=== PATIENT | female | born 1955 | race Caucasian/White ===

== ENCOUNTER → 2018-04-18 08:12 | Outpatient (CLI) | payer OTHER, SELFPAY ==
[2018-04-18 10:27] LABS: Cholesterol 220 mg/dL (200); Glucose 92 mg/dL (74-106); High Density Lipoprotein 62 mg/dL; Triglycerides 86 mg/dL; Very Low Density Lipoprotein 17 mg/dL (5-40)
== END ==
PROVIDERS: Family Provider Family Medicine; PCP Family Medicine; Visit Provider Psychiatry & Neurology Psychiatry
DX: E88.81 Metabolic syndrome and other insulin resistance (principal); Z79.899 Other long term (current) drug therapy
CPT/HCPCS: 36415; 80061; 82947

== ENCOUNTER → 2020-04-10 | Outpatient (CLI) | payer MEDICARE, OTHER, SELFPAY ==
[2015-08-22 14:21] VITALS: BMI 37.0
[2020-04-10 10:47] LABS: Cholesterol 207 mg/dL (200); Glucose 94 mg/dL (74-106); High Density Lipoprotein 65 mg/dL; Triglycerides 91 mg/dL; Very Low Density Lipoprotein 18 mg/dL (5-40)
== END | disposition home or self-care (01) ==
LOC: MTLAB 09:13
PROVIDERS: PCP Family Medicine; Referring Provider Psychiatry & Neurology Psychiatry; Visit Provider Psychiatry & Neurology Psychiatry
DX: E88.81 Metabolic syndrome and other insulin resistance (principal)
CPT/HCPCS: 36415; 80061; 82947

== ENCOUNTER → 2022-03-09 | Outpatient (CLI) | payer MEDICARE, OTHER, SELFPAY ==
[2022-03-09 10:38] LABS: Hemoglobin A1c 5.4 % (3.8-5.6)
[2022-03-09 10:59] LABS: Cholesterol 199 mg/dL (200); Glucose 105 mg/dL (74-106); High Density Lipoprotein 67 mg/dL; Triglycerides 86 mg/dL; Very Low Density Lipoprotein 17 mg/dL (5-40)
== END | disposition home or self-care (01) ==
LOC: MTLAB 08:58
PROVIDERS: PCP Family Medicine; Referring Provider Psychiatry & Neurology Psychiatry; Visit Provider Psychiatry & Neurology Psychiatry
DX: E78.00 Pure hypercholesterolemia, unspecified (principal); R73.9 Hyperglycemia, unspecified
CPT/HCPCS: 36415; 80061; 82947; 83036

== ENCOUNTER 2024-11-18 09:39 | Emergency (ER) | payer MEDICARE, OTHER, SELFPAY ==
[2024-11-18 09:40] VITALS: BP 166/91; PULSE 100; RESP 14; TEMP 36.6; O2SAT 98; BMI 36.0
--- NOTE | 2024-11-18 10:23 | CT_ITS ---
EXAM: BRAIN/HEAD WITHOUT CONTRAST CLINICAL HISTORY: 69-year-old female, confusion, history of schizophrenia. COMPARISON: None. TECHNIQUE: Routine CT imaging of the head without IV contrast. Additional multiplanar reformats were obtained. Dose reduction techniques were used including intermediate exposure control (AEC),iterative reconstruction technique, and/or mA and/or KV dose adjustments based on patient's size. FINDINGS: Mild generalized cerebral and cerebellar volume loss with concordant prominence of the ventricles and subarachnoid spaces. Moderate patchy supratentorial white matter hypodensities. Small lacunar type infarct within the anterior limb of the left internal capsule. No acute intracranial hemorrhage or herniation. No hydrocephalus. The basal cisterns are patent. The mastoid air cells and visualized paranasal sinuses are well-aerated. Unremarkable orbits. No calvarial fracture. Bilateral TMJ arthrosis. CT/Brain/Head without Contrast IMPRESSION: 1. No acute intracranial abnormality. 2. Mild cerebral and cerebellar volume loss, moderate white matter disease and small left lacunar infarct, compatible with age-related changes and chronic microvascular ischemic changes. Reading Location: [id number]
--- NOTE | 2024-11-18 10:23 | EKG12_ITS ---
Test Reason : CONFUSED Blood Pressure : */* mmHG Vent. Rate : 80 BPM Atrial Rate : 80 BPM P-R Int : 174 ms QRS Dur : 80 ms QT Int : 390 ms P-R-T Axes : 24 -18 10 degrees QTcB Int : 449 ms Normal sinus rhythm Normal ECG Confirmed by LILY MORTON, KAMALJIT ([id number]), editorial assistant GABINO JACINTO ([id number]) on 11/20/2024 8:19:44 AM Referred By: Confirmed By: KAMALJIT BAUTISTA MD
--- NOTE | 2024-11-18 10:23 | EX.ED.DYSGE1 ---
HPI History of Present Illness Chief Complaint: Confusion Detail of Chief Complaint: Confusion and odd behavior Informant: patient and spouse/S.O. Narrative Narrative: Patient presents to the emergency department with her for increased confusion and increasingly odd behavior. Patient has history of schizophrenia. states that he has been dealing with issues with her for over 40 years. She had an admission to a psychiatric facility in August and at that time she was started on Abilify and taken off Zyprexa. She did well with that and has had injections every 8 weeks. Last injection was about 4 weeks ago. Over the last 4 days she has had decompensation and odd behavior such as removing all the glass were out of cabinets and putting it downstairs. She is taking pictures off the stovall. She goes for days without talking to him and will saying songs like Meño loves me for up to half an hour at a time. No significant recent illness. Patient does describe a headache but it is not unusual for her to have headaches. No recent falls or injuries. [facility] Medical History Disorganized schizophrenia, chronic condition Home Medications ?Medication ?Instructions ?Recorded ?Last Taken ?Type calcium carbonate 600 mg PO DAILY 08/19/15 Unknown History multivitamin with folic acid 400 1 tab PO DAILY 08/19/15 Unknown History mcg tablet (Thera) ascorbic acid 125 mg-collagen, cap PO 08/21/24 Unknown History hydrolyzed 740 mg capsule aripiprazole (2 month) 720 mg/2.4 720 mg (2.4 mL) IM [id number] #2.4 mL 10/23/24 Unknown Rx mL susp, extended rel IM syringe (Abilify Asimtufii) albuterol sulfate 90 mcg/actuation 2 puff inhalation PRN wheezing 11/18/24 Unknown History aerosol inhaler omeprazole 20 mg capsule,delayed 20 mg PO 11/18/24 Unknown History release Allergy/AdvReac Type Severity Reaction Status Date / Time No Known Allergies Allergy Verified 11/18/24 09:41 Family History Other Asthma Breast cancer CVA (cerebral vascular accident) Hypertension Myocardial infarction Ovarian cancer Surgical History History of hysterectomy Social History Smoking Status: Never smoker alcohol intake: never substance use type: does not use what type of physical activity do you participate in: none ROS ROS ED Review of Systems ROS Unobtainable: other Constitutional Constitutional ED: Reports lethargy; Denies chills, fever(s), sweats or weight loss Eyes Eyes: Denies blurry vision, change in vision or diplopia ENT ENT ED: Denies rhinorrhea or sore throat Cardiovascular Cardiovascular: Reports chest pain; Denies orthopnea or racing heartbeat Respiratory/Chest Respiratory/Chest: Denies cough, dyspnea, dyspnea on exertion, orthopnea or sputum Gastrointestinal Gastrointestinal: Denies abdominal pain, diarrhea, nausea or vomiting Genitourinary Genitourinary ED: Denies dysuria, hematuria or urinary frequency Musculoskeletal Musculoskeletal: Denies arthralgias, back pain, myalgias or neck pain Integumentary Denies abscess, Abrasions or rash Neurologic Neurologic: Reports headache(s) and other Details: Abnormal behavior ; Denies weakness Psychiatric Psychiatric: Denies anxiety, depression or suicidal thoughts Endocrine Endocrinology: Denies polydipsia, polyphagia or polyuria Hematologic/Lymphatic Hematologic/Lymphatic: Denies easy bleeding, easy bruising or lymphadenopathy Allergic/Immunologic Allergic/Immunologic ED: Denies mouth swelling, tongue swelling or urticaria EXAM Physical Exam Const Vital Signs: 11/18/24 09:40 11/18/24 11:40 11/18/24 13:00 Temperature 97.9 F Temperature Source Temporal Pulse Rate 100 82 89 Respiratory Rate 14 17 Blood Pressure 166/91 H 156/81 H 161/89 H Blood Pressure Mean 116 106 113 Pulse Ox 98 97 96 Oxygen Delivery Method Room Air Room Air Room Air 11/18/24 15:00 11/18/24 17:00 Temperature Temperature Source Pulse Rate 76 82 Respiratory Rate 19 H 17 Blood Pressure 143/83 H Blood Pressure Mean 103 Pulse Ox 97 96 Oxygen Delivery Method Room Air Room Air Positive well nourished and well developed General Appearance ED: well developed and NAD HEENT Reports TM's clear and moist mucous membranes normocephalic and atraumatic; Negative for trauma or tenderness Tympanic Membrane ED: Yes TM's clear Eyes PERRL and EOMs intact bilaterally General Eye ED: Negative for pale conjunctiva or scleral icterus Neck no lymphadenopathy, supple and no JVD General: Negative for tenderness Chest Wall inspection of chest normal and palpation of chest normal Chest: Negative for tenderness Resp normal respiratory effort and clear to auscultation bilaterally Effort and Inspection: Negative for respiratory distress or pain with movement Auscultation: Negative for rhonchi, wheezes or diminished lung sounds Cardio regular rate, regular rhythm, S1 normal heart sound, S2 normal heart sound and no murmurs Peripheral Pulses: pulses 2+ throughout GI normal to inspection, nondistended, normoactive bowel sounds, soft to palpation, non-tender, non-distended and no masses Back/Spine no CVA tenderness and no thoracic nor lumbar tenderness Extremity normal to inspection General Extremety ED: Negative for edema General Extremity: Negative for edema Neuro oriented x3, CN's II-XII intact bilaterally, no sensory deficits noted and gait normal Sensorium / Orientation: awake, alert, oriented to person, oriented to place and oriented to time Motor Exam: strength 5/5 throughout and strength abnormal Psych mental status grossly normal Skin no rashes or lesions noted and no wounds MDM MDM MDM Narrative Medical decision making narrative: Patient presents to the emergency department with increased confusion and abnormal behavior. She has longstanding history of schizophrenia. Currently on Abilify. Clinically she looks well and is nontoxic-appearing and following commands. At times she is slow to answer questions. Most of the history comes from the patient's . CBC with differential obtained was normal. Chemistries unremarkable. LFTs were normal. Urinalysis was normal without signs of infection. Alcohol was negative and toxicology screen was negative. CT scan of the brain without contrast will be obtained. Patient was seen by addiction social worker and plan will be to transfer patient to the psychiatric facility for definitive care for decompensated schizophrenia. Patient medically cleared for psychiatric facility. Patient accepted to psych at facility. They recommended we order COVID flu and RSV testing as well as a chest x-ray which will be performed and patient will be transferred to psychiatric facility for definitive care. Lab Data Attestation: I reviewed the patient's lab results. Labs: Laboratory Results - last 24 hr 11/18/24 11/18/24 10:00 10:32 WBC 7.1 RBC 4.12 L Hgb 13.1 Hct 39.6 MCV 96.1 MCH 31.8 MCHC 33.1 RDW Std Deviation 51.1 H RDW Coeff of Tyrel 14.4 Plt Count 259 MPV 10.8 Immature Gran % (Auto) 0.400 Neut % (Auto) 74.8 H Lymph % (Auto) 16.7 L [place] % (Auto) 6.0 Eos % (Auto) 1.1 Baso % (Auto) 1.0 Absolute Neuts (auto) 5.3 Absolute Lymphs (auto) 1.18 Nucleated RBC % 0 Sodium 140 Potassium 4.1 Chloride 104 Carbon Dioxide 29.0 Anion Gap 6 BUN 19 H Creatinine 0.98 Estim Creat Clear Calc 61.96 Est GFR (MDRD) Af Amer 72 Est GFR (MDRD) Non-Af 60 BUN/Creatinine Ratio 19.4 Glucose 99 Calcium 9.2 Total Bilirubin 0.70 AST 27 ALT 29 Alkaline Phosphatase 77 Troponin I High Sens 8 Total Protein 8.0 Albumin 3.8 Globulin 4.2 Albumin/Globulin Ratio 0.9 Urine Color Yellow Urine Clarity Sl. Cloudy Urine pH 6.0 Ur Specific [place] 1.020 Urine Protein 30 H Urine Glucose (UA) Normal Urine Ketones 5 H Urine Occult Blood 10 H Urine Nitrite Negative Urine Bilirubin Negative Urine Urobilinogen Normal Ur Leukocyte Esterase 100 H Urine RBC 0 SEEN Urine WBC 5-10 SEEN Ur Squamous Epith Cells 10-25 SEEN Urine Bacteria 0 SEEN Urine Mucus 0 SEEN Urine Opiates Screen NEGATIVE Urine Methadone Screen NEGATIVE Ur Barbiturates Screen NEGATIVE Ur Phencyclidine Scrn NEGATIVE Ur Amphetamines Screen NEGATIVE MDMA (Ecstasy) Screen NEGATIVE U Benzodiazepines Scrn NEGATIVE Urine Cocaine Screen NEGATIVE U Cannabinoids Screen NEGATIVE Ur Drug Screen Comment Ethyl Alcohol < 3.0 Radiography Diagnostic Testing: Clinical Impression(s) from Imaging Studies Brain CT 11/18/24 10:23 IMPRESSION: 1. No acute intracranial abnormality. 2. Mild cerebral and cerebellar volume loss, moderate white matter disease and small left lacunar infarct, compatible with age-related changes and chronic microvascular ischemic changes. Reading Location: [facility] Chest X-Ray 11/18/24 14:32 IMPRESSION: NEGATIVE CHEST. Reading Location: [facility] 1 view chest x-ray obtained interpreted by myself as no evidence of infiltrate or pneumothorax or acute disease process. Radiology in agreement EKG Initial EKG: Attestation: I personally reviewed and interpreted this EKG as follows: Comments: Sinus rhythm with rate of 80 bpm with no acute ST segment change Discharge Plan Triage Chief Complaint: Confusion ED Provider: Dianne Lloyd Dx/Rx/DC Orders Clinical Impression: Schizophrenia, Abnormal behavior, Disorganized schizophrenia, chronic condition Prescriptions: No Action ascorbic acid-collagen 125-740 mg capsule PO Abilify Asimtufii 720 mg/2.4 mL suspension,extended rel syring 720 mg IM [id number] Qty: 2.4 3RF Rx Instructions: Last shot given 10/05/2024; next shot due 11/30/2024 calcium carbonate 600 MG tablet 600 mg PO DAILY Patient Comments: SUPPLEMENT multivitamin with folic acid [Thera] 1 TABLET tablet 1 tab PO DAILY Patient Comments: SUPPLEMENT omeprazole 20 mg capsule,delayed release(DR/EC) 20 mg PO albuterol sulfate 90 mcg/actuation HFA aerosol inhaler 2 puff INHALATION PRN (Reason: wheezing) Primary Care Provider: Neo Garsia Referrals: Neo Garsia MD [Primary Care Provider] - Print Language: Macedonian Disposition Disposition: Psychiatric Hospital or Unit
[2024-11-18 10:28] LABS: Bacteria 0 SEEN /hpf (None Seen); Mucous, Urine 0 SEEN /hpf (<or=2+)
[2024-11-18 10:31] LABS: Color, Urine Yellow (Yellow); Glucose, Dipstick Normal (Normal); Ketone-Dipstick 5 mg/dl (Negative); Leukocyte Esterase-Dipstick 100 /ul (Negative); Nitrite-Dipstick Negative (Negative); Occult Blood-Urine 10 /ul (Negative); Protein-Dipstick 30 mg/dl (Negative); Urine Bilirubin Dipstick Negative (Negative); Urine Clarity Sl. Cloudy (Clear); Urine Urobilinogen Normal (Normal)
[2024-11-18 10:37] LABS: Squamous Epithelial Cells - UA 10-25 SEEN /hpf (5-10)
[2024-11-18 10:38] LABS: Absolute Lymphocyte Count 1.18 X10^3/uL (0.83-4.51); Absolute Neutrophil Count 5.3 X10^3/uL (2.0-7.7); Basophil# 0.07 X10^3/uL; Eosinophil# 0.08 X10^3/uL; Eosinophils% 1.1 % (0-5); Hematocrit 39.6 % (37-47); Hemoglobin 13.1 g/dL (12.0-15.0); Lymphocyte # 1.18 X10^3/ul (0.83-4.51); Lymphocyte % 16.7 % (19-41); Mean Corp Hgb Conc 33.1 g/dL (32-36); Mean Corpuscular Hgb 31.8 pg (27.0-32.0); Mean Corpuscular Volume 96.1 fL (81-99); Mean Platelet Vol. 10.8 fl (6.2-12.0); Monocyte# 0.42 X10^3/uL; NRBC Flagged by Analyzer 0 % (0-5); Neutrophil # 5.27 X10^3/uL (2.7-7.7); Neutrophil % 74.8 % (47-70); Platelet Count 259 K/mm3 (150-450); RBC Distribution Width CV 14.4 % (11.6-14.6); RBC Distribution Width SD 51.1 fl (35.1-43.9); Red Blood Count 4.12 M/mm3 (4.2-5.4); White Blood Count 7.1 K/mm3 (4.4-11.0)
[2024-11-18 10:38] LABS: Red Blood Cells-Urine 0 SEEN /hpf (0-5); White Blood Cells 5-10 SEEN /hpf (0-5)
[2024-11-18 10:56] LABS: Alcohol, Blood (Medical)-Serum < 3.0 mg/dL
[2024-11-18 11:03] LABS: ALB/GLOB Ratio 0.9 RATIO (0.9-2.4); AST(SGOT) 27 U/L (15-37); Alanine Aminotransfer ALT/SGPT 29 U/L (13-56); Albumin, Serum 3.8 g/dL (3.2-5.0); Alkaline Phosphatase 77 U/L (45-117); Anion Gap 6 (5-15); BUN 19 mg/dL (7-18); BUN/Creat Ratio 19.4 RATIO (10-20); Calcium,Total 9.2 mg/dL (8.5-10.1); Chloride 104 mmol/L (98-107); Creatinine, Serum 0.98 mg/dL (0.55-1.02); EST Glomerular Filtration Rate 60 mL/min (>60); Est Glom Filt Rate - Afr Amer 72 mL/min (>60); Estimated Creatinine Clearance 61.96 ml/min; Globulin 4.2 g/dL (2.2-4.2); Glucose 99 mg/dL (74-106); Potassium 4.1 mmol/L (3.5-5.1); Sodium Level 140 mmol/L (136-145); Troponin-I HS 8 pg/mL (3.0-54.0)
[2024-11-18 11:03] LABS: Amphetamine Urine NEGATIVE (<1000 ng/mL); Barbiturate Urine VISTA NEGATIVE (< 200 ng/mL); Benzodiazepine Urine VISTA NEGATIVE (< 200 ng/mL); Cocaine Urine VISTA NEGATIVE (< 300 ng/mL); Ecstacy Urine VISTA NEGATIVE (< 500 ng/mL); Methadone Urine VISTA NEGATIVE (< 300 ng/mL); Opiates Urine NEGATIVE (< 300 ng/mL); PCP Urine NEGATIVE (< 25 ng/mL); THC Urine VISTA NEGATIVE (< 50 ng/mL); Vista UDS pH Range 5
[2024-11-18 11:40] VITALS: BP 156/81; PULSE 82; O2SAT 97
--- NOTE | 2024-11-18 11:40 | CM.ED ---
Social Work Psychiatric Assessment Reason for consult: Confusion.? Informant(s): ?Patient, patient?s and review of medical records. Patient provided consent for visit and at first requested to be interviewed alone however once patient?s left the room, patient stopped talking altogether after answering her first name and completely shut down. healthcare social worker brought patient?s back into the room in an attempt to gather as much information as possible and there were intermittent times where patient would open her eyes and respond to questions.? Other times, patient would fall silent again. Chief Complaint:? Patient agreeable to come to the ED with to be evaluated following confusion and odd behavior since this past Wednesday when patient began to mentally decompensate. Patient has gone for up to 4 days without speaking to her , recently removed all of the glassware out of the kitchen and taken it downstairs and left the house this morning and started walking down the road in the cold and snowing conditions. Patient?s had to retrieve patient. Patient has been taking pictures off of the stovall and has been singing catholic songs for up to half hour at a time. Marital/Social History/Sexual Orientation/Gender Identity: Single/heterosexual/Cis-gender. Living Situation: Patient lives at home with her in [place]. Support/Resources: Patient?s , patient?s brothers and sisters in [place], Patient?s sons Tyler (lives local and helps out frequently), [place] and patient?s daughter Cassie of [place]. Patient?s muslim is also a support, the [employer] of [place] in [place]. History: None Education and Employment History: Patient has a 4 year college degree in Elementary Education. 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 Mental Health Treatment/History: Known history of schizophrenia. Patient?s reported he?s been ?dealing with this? for 40 years. Patient had an inpatient psychiatric hospitalization in August of 2024 due to similar reasons as today and was placed at [facility]. 40 years ago, patient has her first inpatient hospitalization at [facility]. No other psychiatric hospitalizations were reported. Triggers/Stressors to mental health: Medication non-compliance and uatsdin. Coping Skills: None that have been effective once patient begins to decompensate other than medication changes. History of Abuse (physical/sexual/verbal/emotional): Patient would not answer however patient?s denied any knowledge of any history or current emotional abuse, physical abuse, sexual abuse or IPV. Substance Abuse Current/Historical: Patient?s denied? any history or current substance abuse issues involving alcohol or drugs. Risk to Self/Others: ? Suicidal (thought/plan/intent/attempt): Patient spoke up and denied any previous or current thoughts of suicide and denied any previous attempts. ? Access to Lethal Means: There are 2 guns in the home.? Guns are not locked up, however the guns do not have ammunition in them and the ammunition is stored away from the guns. healthcare social worker provided verbal education and offered gun locks which were declined. ? Homicidal (thought/plan/intent/attempt): Patient spoke up and denied any previous or current homicidal ideation. ? History of Violence (self/others/objects): Denied Mental Status Exam: ??? Orientation: Patient oriented to first name but not last but was oriented to month, year and place. ??? Memory: Fair Appearance/General Behavior: Patient was observed to be clean and well groomed.? Patient kept her eyes either half shut or completely shut throughout the assessment, and vacillated between verbally ?participating in the assessment and not participating in the assessment. Otherwise, patient completely laid flat in the hospital bed the entire time without moving. Mood/Affect: Flat/blunted. Communication Pattern:? Communication was clear and easy to understand most of the time when patient would talk however at other times, patient would speak so soft it was hard to hear. Thought Process:? Patient denied any auditory or visual hallucinations, paranoia, delusions or preoccupations however patient?s spoke up and stated the other day when patient?s son Tyler asked patient why she was taking all of the glassware out of the cabinets, patient responded by saying that the President told her to. General Intellectual Functioning: ??Unable to fully assess. Likely close to or within the average range. Judgment: Poor Insight: Poor [place] SSRS SUICIDAL IDEATION Ask questions 1 and 2.? If both are negative, proceed to ?Suicidal Behavior? section. If the answer question 2 is yes, ask questions 3, 4, 5.? If the answer to question 1 and/or 2 is ?yes?, complete ?Intensity of Ideation? section below. 1. Wish to be ? Subject endorses thoughts about a wish to be or not alive anymore, or wish to fall asleep and not wake up. Have you wished you were or wished you could go to sleep and not wake up? No Lifetime: Time He/She [place] Most Suicidal: ? Past 1 month: Please Describe if yes: ? 2. Non-Specific Active Suicidal Thoughts General, non-specific thoughts of wanting to end one?s life/commit suicide (e.g., ?I?ve thought about killing myself?) without thoughts of ways to kills oneself/associated methods, intent, or plan during the assessment period.? Have you actually had any thoughts of killing yourself? ?No Lifetime: Time He/She [place] Most Suicidal: ? Past 1 month: Please Describe if yes: 3. Active Suicidal Ideation with Any Methods (Not Plan) without Intent to Act Subject endorses thoughts of suicide and has thought of at least one method during the assessment period.? This is different than a specific plan with time, place, or method details worked out (e.g., thought of method to kills self but not a specific plan).? Includes person who would say ?I thought about thanking an overdose, but I never made a specific plan as to when, where or how. I would actually do it, and I would never go through with it.? Have you been thinking about how you might do this? Lifetime: Time He/She [place] Most Suicidal: ? Past 1 month:? Please Describe if yes: 4. Active Suicidal Ideation with Some Intent to Act, without Specific Plan Active suicidal thoughts of kills oneself fand subject reports having some intent to act on such thoughts, as opposed to ?I have the thoughts but I definitely will not do anything about them.? Have you had these thoughts and had some intention of acting on them? Lifetime: Time He/She [place] Most Suicidal: Past 1 month: Please Describe if yes: 5. Active Suicidal Ideation with Specific Plan and Intent Thoughts of kills oneself with details of plan fully or partially worked out and subject has some intent to care it out. Have you started to work out or worked out the details of how to kill yourself? Do you intend to carry out this plan? Lifetime: Time He/She [place] Most Suicidal: Past 1 month: ??? Please Describe if yes: INTENSITY OF IDEATION The following feature should be rated with respect to the most sever type of ideation (i.e., 1-5 from above, with 1 being the least severe and 5 being the most severe). Ask about time he/she/they were feeling the most suicidal.? Lifetime - Most Severe Ideation: Type # (1-5): Description: Recent - Most Severe Ideation: Type # (1-5): Description: Frequency How many times have you had these thoughts? Lifetime: (1) Less than once a week??? (2) Once a week?? (3)? 2-5 times in week??? (4) Daily or almost daily??? (5) Many times each day Recent, Past 1 month:? (1) Less than once a week??? (2) Once a week?? (3)? 2-5 times in week??? (4) Daily or almost daily??? (5) Many times each day Duration When you have the thoughts how long do they last? Lifetime: (1) Fleeting - few seconds or minutes? (2) Less than 1 hour/some of the time? (3) 1-4 hours/a lot of time? 4) 4-8 hours/most of day? (5) More than 8 hours/persistent or continuous Recent, Past 1 month :? (1) Fleeting - few seconds or minutes? (2) Less than 1 hour/some of the time? (3) 1-4 hours/a lot of time? 4) 4-8 hours/most of day? (5) More than 8 hours/persistent or continuous Controllability Could/can you stop thinking about killing yourself or wanting to if you want to? Lifetime:? (1) Easily able to control thoughts?? (2) Can control thoughts with little difficulty??? (3) Can control thoughts with some difficulty??? 4) Can control thoughts with a lot of difficulty? (5) Unable to control thoughts?? (0) Does not attempt to control thoughts Recent, Past 1 month: (1) Easily able to control thoughts?? (2) Can control thoughts with little difficulty??? (3) Can control thoughts with some difficulty??? 4) Can control thoughts with a lot of difficulty? (5) Unable to control thoughts?? (0) Does not attempt to control thoughts Deterrents Are there things - anyone or anything (e.g., family, uatsdin, pain of ) - that stopped you from wanting to or acting on thoughts of committing suicide? Lifetime:? (1) Deterrents definitely stopped you from attempting suicide? (2) Deterrents probably stopped you?? (3) Uncertain that deterrents stopped you? (4) Deterrents most likely did not stop you? (5) Deterrents definitely did not stop you?? 0) Does not apply??? Recent:??? (1) Deterrents definitely stopped you from attempting suicide? (2) Deterrents probably stopped you?? (3) Uncertain that deterrents stopped you? (4) Deterrents most likely did not stop you? (5) Deterrents definitely did not stop you?? 0) Does not apply??? Reasons for Ideation What sort of reasons did you have for thinking about wanting to or killing yourself? Was it to end the pain or stop the way you were feeling (in other words you couldn?t go on living with this pain or how you were feeling) or was it to get attention, revenge or a reaction from others? Or both? Lifetime: (1) Completely to get attention, revenge or a reaction from?? (2) Mostly to get attention, revenge or a reaction from others? (3) Equally to get attention, revenge or a reaction from others? and to end/stop the pain?? ( 4) Mostly to end or stop the pain (you couldn?t go on living with the pain or how you were feeling)??? (5) Completely to end or stop the pain (you couldn?t go on living with the pain or? how you were feeling)??? (0)? Does not apply? Recent: (1) Completely to get attention, revenge or a reaction from?? (2) Mostly to get attention, revenge or a reaction from others? (3) Equally to get attention, revenge or a reaction from others? and to end/stop the pain??? (4) Mostly to end or stop the pain (you couldn?t go on living with the pain or how you were feeling)?? (5) Completely to end or stop the pain (you couldn?t go on living with the pain or? how you were feeling)?? (0)? Does not apply? SUICIDAL BEHAVIOR Actual Attempt: A potentially self-injurious act committed with at least some wish to , as a result of act.? Behavior was in part thought of as method to kill oneself.? Intent does not have to be 100%.? If there is any intent/desire to associated with the act, then it can be considered an actual suicide attempt.? There does not have to be any injury of harm, just the potential for injury or harm.? If person pulls trigger while gun is in mouth, but gun is broken so no injury results, this is considered an attempt.? Inferring intent:? Even if an individual denies intent/wish to , it may be inferred clinically from the behavior or circumstances.? For example, a highly lethal act that is clearly not an accident so no other intent but suicide can be inferred (e.g. gunshot to head, jumping from window of a high floor/story).? Also, if someone denies intent to , but they thought that what they did could be lethal, intent may be inferred.? Have you made a suicide attempt? No Have you done anything to harm yourself? No Have you done anything dangerous where you could have ? No What did you do? Did you as a way to end your life? Did you want to (even a little) when you ? Were you trying to end your life when you ? Or did you think it was possible you could have from ? Or did you do it purely for other reasons/without ANY intention of killing yourself like to relieve stress, feel better, get sympathy, or get something else to happen)? (Self -Injurious Behavior without suicidal intent) Lifetime: Past 3 months: If yes, describe: Total # of Attempts in His/Her Lifetime: Total # of attempts in Past 3 months: Has person engaged in Non-Suicidal Sefl-Injurious Behavior? No Lifetime: Past 3 months: Interrupted Attempt:? When the person is interrupted (by an outside circumstance) from starting the potentially self-injurious act (if not for that, actual attempt would have occurred).? Overdose: Person has pills in hand but is stopped from ingesting. Once they ingest any pills, this becomes an attempt rather than an interrupted attempt. Shooting: Person has gun pointed toward self, gun is taken away by someone else, or is somehow prevented from pulling trigger. Once they pull the trigger, even if the gun fails to fire, it is an attempt. Jumping: Person is poised to jump, is grabbed and taken down from ledge.? Hanging: Person has noose around neck but has not yet started to hang self -is stopped from doing so.? Has there been a time when you started to do something to end your life but someone or something stopped you before you did anything? No Lifetime: Past 3 months: If yes, describe: ? Total # of interrupted attempts in His/Her Lifetime: Total # of interrupted attempts in Past 3 months: Aborted or Self-Interrupted Attempt:? When person begins to take steps toward making a suicide attempt, but stops themselves before they have actually engaged in any self-destructive behavior. Examples are like interrupted attempts, except that the individual stops him/herself, instead of being stopped by something else. Has there been a time when you started to do something to try to end your life, but you stopped yourself before you did anything? ?No Lifetime: Past 3 months: If yes, describe: Total # of aborted or self-interrupted attempts in His/Her Lifetime: Total # of aborted or self-interrupted attempts in Past 3 months: Preparatory Acts or Behavior:? Acts or preparation towards imminently making a suicide attempt. This can include anything beyond a verbalization or thought, such as assembling a specific method (e.g., buying pills, purchasing a gun) or preparing for one?s by suicide (e.g., giving things away, writing a suicide note). Have you taken any steps towards making a suicide attempt or preparing to kill yourself (such as collecting pills, getting a gun, giving valuables away or writing a suicide note)? No Lifetime: Past 3 months: If yes, describe: ? Total # of preparatory acts in His/Her Lifetime: Total # of preparatory acts in Past 3 months: Lethality/Medical Damage:??? 0.? No physical damage or very minor physical damage (e.g., surface scratches). 1.? Minor physical damage (e.g., lethargic speech; first-degree galeas; mild bleeding; sprains). 2.? Moderate physical damage; medical attention needed (e.g., conscious but sleepy, somewhat responsive; second-degree galeas; bleeding of major vessel). 3.? Moderately severe physical damage; medical hospitalization and likely intensive care required (e.g., comatose with reflexes intact; third-degree galeas less than 20% of body; extensive blood loss but can recover; major fractures). 4.? Severe physical damage; medical hospitalization with intensive care required (e.g., comatose without reflexes; third-degree galeas over 20% of body; extensive blood loss with unstable vital signs; major damage to a vital area). 5.? Most Recent attempt Date: Code: Most Lethal Attempt Date: Code: Initial/First Attempt Date: Code: Potential Lethality:? Only Answer if Actual Lethality=0 Likely lethality of actual attempt if no medical damage (the following examples, while having no actual medical damage, had potential for very serious lethality: put gun in mouth and pulled the trigger but gun fails to fire so no medical damage; laying on train tracks with oncoming train but pulled away before run over). 0 = Behavior not likely to result in injury 1 = Behavior likely to result in injury but not likely to cause 2 = Behavior likely to result in despite available medical care Most Recent Attempt Code: Most Lethal Attempt Code: Initial/First Attempt Code: Assessment Summary: Patient appears to be in need of stabilization at this time. Patient has been gradually decompensating since last Wednesday which has included but hasn?t been limited to refusing to speak to for days at a time, removing all glassware from cabinets following auditory hallucinations/commands from the President, removing pictures from the stovall and leaving the house in the freezing temperatures and either sitting or standing outside for long periods of times or starting to walk down the road.? Patient?s hasn?t been able to sleep for fear that patient will try and leave the house at night and will either get lost, get hit by a car or will freeze to .? Patient?s ? and son take turns staying up all night or patient?s will sleep in front of the door in an effort to try and keep patient safe. Plan: After consulting with ED doctor, it was decided that an inpatient, psychiatric placement is needed at this time in able to ensure patient?s health and safety needs are being met. healthcare social worker will work on placement. Patient will go for periods of time without taking her prescribed medication and appears to be in need of getting stabilized. Keturah Ramirez, GUN NUMBERER, LAUNDRY TECHNICIAN ?
--- NOTE | 2024-11-18 12:54 | CM.ED ---
Social Work: [facility] has an open bed. spice room worker faxed over referral packet and is waiting to see if they will accept. Keturah Ramirez, MICA MINER BLASTING, LODGE ATTENDANT
[2024-11-18 13:00] VITALS: BP 161/89; PULSE 89; RESP 17; O2SAT 96
--- NOTE | 2024-11-18 14:20 | CM.ED ---
Social Work: [facility] will accept patient. Accepting Doctor: Dr. Gudino. NTN: [phone] . Prior to arrival, they need a chest x-ray, a COVID panel and a Resp. panel. Once completed, please fax to facility. Keturah Ramirez, OBSTETRICS TECHNICIAN, WOOL SCOURER
--- NOTE | 2024-11-18 14:30 | ED.RN ---
ACCEPTED AT [facility]. [facility] @ [phone]
--- NOTE | 2024-11-18 14:32 | RAD_ITS ---
PROCEDURE: CHEST 1 VIEW (PORTABLE) REASON FOR EXAM: 69-year-old female, weakness. TECHNIQUE: Frontal view of the chest. COMPARISON: None. FINDINGS: The heart size is normal. Mild tortuosity of the thoracic aorta. The lungs are clear. No focal consolidation, pleural effusion or pneumothorax. Degenerative changes are identified within the thoracic spine. Bilateral glenohumeral joint arthrosis. RAD/Chest 1 View (Portable) IMPRESSION: NEGATIVE CHEST. Reading Location: [id number]
[2024-11-18 15:00] VITALS: BP 143/83; PULSE 76; RESP 19; O2SAT 97
[2024-11-18 17:00] VITALS: PULSE 82; RESP 17; O2SAT 96
--- NOTE | 2024-11-18 17:18 | ED.RN ---
PHYSICIANS CALLED AND PUSHED BACK THE TITLE PROCESSOR TIME TO [id number].
--- NOTE | 2024-11-18 19:42 | ED.RN ---
Report called to [facility].
[2024-11-18 20:29] VITALS: BP 143/83; PULSE 82; RESP 17; TEMP 36.6; O2SAT 96
== END 2024-11-18 21:20 ==
PROVIDERS: Emergency Provider Emergency Medicine; PCP Family Medicine; Visit Provider Emergency Medicine
DX: F20.1 Disorganized schizophrenia (principal); R51.9 Headache, unspecified; Z79.899 Other long term (current) drug therapy; R07.9 Chest pain, unspecified
CPT/HCPCS: 70450; 71045; 80053; 80307; 81001; 82077; 84484; 85025; 87631; 93005; 99284; A4216